=== PATIENT | female | born 1970 | race Caucasian/White ===

== ENCOUNTER → 2017-12-02 | Outpatient (CLI) | payer MEDICAID, MEDICARE, OTHER ==
--- NOTE | 2017-12-02 14:27 | RAD ---
Neck soft tissue ultrasound History: Dysphagia. Findings: Right thyroid lobe measures 4.9 x 1.8 x 2.1 cm. Left thyroid lobe measures 4.2 x 1.6 x 2.1 cm. Isthmus thickness is 0.3 cm. 2 mm right thyroid lobe simple cyst. No solid nodules. No microcalcifications. No parathyroid nodules documented. Impression: 2 mm simple cyst of the right thyroid lobe. Otherwise negative exam.
== END | disposition home or self-care (01) ==
LOC: US 13:55
PROVIDERS: ATTEND Family Medicine
DX: E04.1 Nontoxic single thyroid nodule (principal)
CPT/HCPCS: 76536

== ENCOUNTER → 2018-05-21 | Outpatient (CLI) | payer OTHER ==
[2018-05-21 14:16] LABS: FREE T4 0.86 ng/dL (0.76-1.46); THYROID STIM HORMONE (TSH) 1.355 uIU/mL (0.358-3.740)
[2018-05-21 16:09] LABS: T3 TOTAL 105 ng/dL (71-180)
== END | disposition home or self-care (01) ==
LOC: LAB 10:27
PROVIDERS: ATTEND Obstetrics & Gynecology
DX: L65.9 Nonscarring hair loss, unspecified (principal)
CPT/HCPCS: 36415; 84439; 84443; 84480

== ENCOUNTER → 2018-12-02 | Day surgery (SDC) | payer OTHER ==
[~2018-12-02] MED LIST: ALBUTEROL SULFATE 2.5 MG/3 ML NEBU. NEB PRN; ATROPINE 0.5 MG/5 ML DISP.SYRIN. IV PRN; CLOB10TA PO; IV RINGERS SOLUTION,LACTATED 1,000 ML IV SCH; LAMO100T PO; LEVE500T56 PO; LIDOCAINE 2% PF Vial for OR 5 ML VIAL. ONE; NALOXONE 0.4 MG/ML VIAL. IV PRN; ONDANSETRON PF 4 MG/2 ML VIAL. IV PRN; PHEN37.5 PO; PROPOFOL 40 ML IV ONE; ZOLP10TA PO; diphenhydrAMINE 50 MG/ML VIAL IV PRN
[2018-12-02 10:35] VITALS: BP 132/94
== END | disposition home or self-care (01) ==
LOC: SURG 08:02
PROVIDERS: ATTEND Internal Medicine Gastroenterology
DX: K92.1 Melena (principal); Z88.5 Allergy status to narcotic agent; Z88.6 Allergy status to analgesic agent; Z79.899 Other long term (current) drug therapy; Z98.890 Other specified postprocedural states; Z95.0 Presence of cardiac pacemaker
CPT/HCPCS: 45378; J2704; J2001

== ENCOUNTER 2019-04-03 10:42 | Emergency (ER) | payer OTHER ==
[~2019-04-03] VITALS: Ht 157.5 cm; Wt 74.4 kg
[~2019-04-03 10:42] MED LIST changes: -ALBUTEROL SULFATE 2.5 MG/3 ML NEBU. NEB PRN; -ATROPINE 0.5 MG/5 ML DISP.SYRIN. IV PRN; -IV RINGERS SOLUTION,LACTATED 1,000 ML IV SCH; -LIDOCAINE 2% PF Vial for OR 5 ML VIAL. ONE; -NALOXONE 0.4 MG/ML VIAL. IV PRN; -ONDANSETRON PF 4 MG/2 ML VIAL. IV PRN; -PROPOFOL 40 ML IV ONE; -diphenhydrAMINE 50 MG/ML VIAL IV PRN
--- NOTE | 2019-04-03 11:38 | RAD ---
CHEST PA LATERAL History: Chest pain and dizziness Comparison: 08/03/2019 two-view chest x-ray exam. Findings: The cardiomediastinal silhouette is normal. Pulmonary vasculature is normal. The lungs are clear. No pleural effusion or pneumothorax is seen. There is no acute bone abnormality. IMPRESSION: No acute cardiopulmonary process. Electronically signed by: Nick Erickson MD (04/03/2019 11:35 AM) [id number]
[2019-04-03 11:42] LABS: BASO # 0.1 x10^3/uL (0.0-0.2); BASO % 1 % (0-3); EOS % 0 % (0-3); HEMATOCRIT 47.4 % (36.0-47.0); HEMOGLOBIN 15.5 g/dL (12.0-15.5); LYMPH # 1.2 x10^3/uL (1.0-4.8); LYMPH % 15 % (24-48); MEAN CORPUSCULAR HEMOGLOBIN 29 pg (25-35); MEAN CORPUSCULAR HGB CONC 33 g/dL (31-37); MEAN CORPUSCULAR VOLUME 89 fL (79-100); MONO # 0.5 x10^3/uL (0.0-1.1); MONO % 7 % (0-9); NEUT # 6.2 x10^3uL (1.8-7.7); NEUT % 78 % (31-73); PLATELET COUNT 305 x10^3/uL (140-400); RED BLOOD COUNT 5.34 x10^6/uL (3.50-5.40); RED CELL DISTRIBUTION WIDTH 13.1 % (11.5-14.5)
[2019-04-03 11:47] LABS: ALBUMIN 4.3 g/dL (3.4-5.0); ALBUMIN/GLOBULIN RATIO 1.1 (1.0-1.7); CALCIUM 9.8 mg/dL (8.5-10.1); CREATININE 1.1 mg/dL (0.6-1.0); GFR 53.5; POTASSIUM 3.3 mmol/L (3.5-5.1); TOTAL BILIRUBIN 0.3 mg/dL (0.2-1.0); TOTAL PROTEIN 8.2 g/dL (6.4-8.2)
[2019-04-03] MEDS ORDERED: ASPIRIN 81 MG TAB.CHEW PO ONE (12:00)
--- NOTE | 2019-04-03 12:23 | PHYS DOC ---
Past History Past Medical History: Seizure Past Surgical History: Other Alcohol Use: None Drug Use: None Adult General Chief Complaint Chief Complaint: CHEST PAIN HPI HPI 48-year-old female presents with her mother with chest pain and rapid heartbeat. The patient tells me this started around 7 AM, 5 hours prior to arrival. She is very anxious about it. She states that it is today and intermittent throbbing sensation. It is moderate in intensity. She was not doing anything specific last started. Nothing seems to make it better or worse. She is complaining of some lightheadedness, but no shortness of breath. Patient's mother states that she has been to 2 other hospitals in the last several days for similar complaints. There is been no official diagnosis. She denies fever or chills. Review of Systems Review of Systems Constitutional: Denies fever or chills [] Eyes: Denies change in visual acuity, redness, or eye pain [] HENT: Denies nasal congestion or sore throat [] Respiratory: Denies cough or shortness of breath [] Cardiovascular: No additional information not addressed in HPI [] GI: Denies abdominal pain, nausea, vomiting, bloody stools or diarrhea [] : Denies dysuria or hematuria [] Musculoskeletal: Denies back pain or joint pain [] Integument: Denies rash or skin lesions [] Neurologic: Denies headache, focal weakness or sensory changes [] Endocrine: Denies polyuria or polydipsia [] All other systems were reviewed and found to be within normal limits, except as documented in this note. Current Medications Current Medications Current Medications Medications (Trade) Dose Ordered Sig/[facility] Start Time Stop Time Status Last Admin Dose Admin Aspirin (Children'S Aspirin) 324 mg 1X ONCE 04/03/19 12:00 04/03/19 12:01 DC 04/03/19 11:47 324 MG Allergies Allergies Allergies Coded Allergies Type Severity Reaction Last Updated Verified fentanyl Allergy Unknown 06/09/18 Yes morphine Allergy Unknown 06/09/18 Yes Physical Exam Physical Exam Constitutional: Well developed, well nourished, mild acute distress, non-toxic appearance. [] HENT: Normocephalic, atraumatic, bilateral external ears normal, oropharynx moist, no oral exudates, nose normal. [] Eyes: PERRLA, EOMI, conjunctiva normal, no discharge. [] Neck: Normal range of motion, no tenderness, supple, no stridor. [] Cardiovascular:Heart rate regular rhythm, no murmur [] Lungs & Thorax: Bilateral breath sounds clear to auscultation. Rapid breathing. [] Abdomen: Bowel sounds normal, soft, no tenderness, no masses, no pulsatile masses. [] Skin: Warm, dry, no erythema, no rash. [] Back: No tenderness, no CVA tenderness. [] Extremities: No tenderness, no cyanosis, no clubbing, ROM intact, no edema. [] Neurologic: Alert and oriented X 3, normal motor function, normal sensory function, no focal deficits noted. [] Psychologic: Affect normal, judgement normal, mood very anxious. [] Current Patient Data Vital Signs Vital Signs Date Time Temp Pulse Resp B/P (MAP) Pulse Ox O2 Delivery O2 Flow Rate FiO2 04/03/19 10:45 98.9 99 26 99 Room Air Lab Results Laboratory Tests Test 04/03/19 11:17 White Blood Count 8.0 x10^3/uL (4.0-11.0) Red Blood Count 5.34 x10^6/uL (3.50-5.40) Hemoglobin 15.5 g/dL (12.0-15.5) Hematocrit 47.4 % (36.0-47.0) H Mean Corpuscular Volume 89 fL (79-100) Mean Corpuscular Hemoglobin 29 pg (25-35) Mean Corpuscular Hemoglobin Concent 33 g/dL (31-37) Red Cell Distribution Width 13.1 % (11.5-14.5) Platelet Count 305 x10^3/uL (140-400) Neutrophils (%) (Auto) 78 % (31-73) H Lymphocytes (%) (Auto) 15 % (24-48) L Monocytes (%) (Auto) 7 % (0-9) Eosinophils (%) (Auto) 0 % (0-3) Basophils (%) (Auto) 1 % (0-3) Neutrophils # (Auto) 6.2 x10^3uL (1.8-7.7) Lymphocytes # (Auto) 1.2 x10^3/uL (1.0-4.8) Monocytes # (Auto) 0.5 x10^3/uL (0.0-1.1) Eosinophils # (Auto) 0.0 x10^3/uL (0.0-0.7) Basophils # (Auto) 0.1 x10^3/uL (0.0-0.2) Sodium Level 139 mmol/L (136-145) Potassium Level 3.3 mmol/L (3.5-5.1) L Chloride Level 102 mmol/L (98-107) Carbon Dioxide Level 27 mmol/L (21-32) Anion Gap 10 (6-14) Blood Urea Nitrogen 12 mg/dL (7-20) Creatinine 1.1 mg/dL (0.6-1.0) H Estimated GFR (Cockcroft-Gault) 53.5 BUN/Creatinine Ratio 11 (6-20) Glucose Level 119 mg/dL (70-99) H Calcium Level 9.8 mg/dL (8.5-10.1) Total Bilirubin 0.3 mg/dL (0.2-1.0) Aspartate Amino Transferase (AST) 18 U/L (15-37) Alanine Aminotransferase (ALT) 21 U/L (14-59) Alkaline Phosphatase 86 U/L (46-116) Troponin I Quantitative < 0.017 ng/mL (0-0.055) Total Protein 8.2 g/dL (6.4-8.2) Albumin 4.3 g/dL (3.4-5.0) Albumin/Globulin Ratio 1.1 (1.0-1.7) EKG EKG Sinus tachycardia, rate 110, normal axis, no ST elevations or depressions.[] Radiology/Procedures Radiology/Procedures [] Impressions: CHEST PA LATERAL History: Chest pain and dizziness Comparison: 08/03/2019 two-view chest x-ray exam. Findings: The cardiomediastinal silhouette is normal. Pulmonary vasculature is normal. The lungs are clear. No pleural effusion or pneumothorax is seen. There is no acute bone abnormality. IMPRESSION: No acute cardiopulmonary process. Electronically signed by: Kellie Lemon MD (04/03/2019 11:35 AM) [id number] DICTATED AND SIGNED BY: KELLIE LEMON MD DATE: 04/03/19 1135 CC: CHRISTIAN FELDMAN DO; YOLANDA CHAPA MD ~ Course & Med Decision Making Course & Med Decision Making Pertinent Labs and Imaging studies reviewed. (See chart for details) Patient appears extremely anxious. Her labs are unremarkable. Her troponin is negative. Her EKG is unremarkable except for being tachycardic at 110. Into discussed the patient's results, she was peeling off her heart monitors getting ready to leave. I advised her not to leave because I was still trying to ascertain the cause of her pain. We started to give her 1 L normal saline and I offered to give her some Ativan to calm her nerves. She would not allow my nurse to give her Ativan. Given her pain even though she has a negative troponin, we were going to try nitroglycerin sublingual, but the patient refuses this as well. She then left AMA before we can do any further workup or give her any medications. Incidentally, after she left, her d-dimer came back as normal. Chest x-ray is unremarkable. [] Dragon Disclaimer Dragon Disclaimer This electronic medical record was generated, in whole or in part, using a voice recognition dictation system. Departure Departure: Impression: Primary Impression: Chest pain Additional Impression: Anxiety Disposition: 07 AGAINST MEDICAL ADVICE Condition: GUARDED Referrals: YOLANDA CHAPA MD (PCP) Problem Qualifiers CHRISTIAN FELDMAN DO Apr 03, 2019 12:23
--- NOTE | 2019-04-03 12:43 | EKG ---
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
[2019-04-03 12:45] VITALS: BP 140/94
[2019-04-03] MEDS ORDERED: IV NORMAL SALINE 1,000ML 1,000 ML IV ONE (13:00)
== END 2019-04-03 13:22 | disposition left against medical advice (07) ==
LOC: ER 10:42
DX: R07.89 Other chest pain (principal); F41.9 Anxiety disorder, unspecified; R42 Dizziness and giddiness; Z88.8 Allergy status to other drugs, medicaments and biological substances; Z88.5 Allergy status to narcotic agent
CPT/HCPCS: 36415; 71046; 80053; 84484; 85025; 85379; 93005; 99285

== ENCOUNTER → 2019-05-28 | Outpatient (CLI) | payer OTHER ==
[~2019-05-28] MED LIST changes: +HYOS0.1264 PO; +LANS15TA6 PO; +METO10TA81 PO; +OXAP600T2 PO
[2019-05-29 02:09] LABS: ESTRADIOL LEVEL 83.5 pg/mL (.); PROGESTERONE 4.5 ng/mL (.); TESTOSTERONE TOTAL 25 ng/dL (8-48)
[2019-05-31 15:12] LABS: DHEA 384 ng/dL (31-701)
== END | disposition home or self-care (01) ==
LOC: RAD 13:27
PROVIDERS: ATTEND General Practice
DX: E34.9 Endocrine disorder, unspecified (principal)
CPT/HCPCS: 36415; 82626; 82670; 82679; 84144; 84403

== ENCOUNTER 2019-05-30 08:52 | Emergency (ER) | payer OTHER ==
[~2019-05-30] VITALS: Ht 157.5 cm; Wt 72.5 kg
[2019-05-30 08:52] VITALS: BP 147/99
[~2019-05-30 08:52] MED LIST changes: -HYOS0.1264 PO; -LANS15TA6 PO; -METO10TA81 PO; -OXAP600T2 PO
[2019-05-30] MEDS ORDERED: IV NORMAL SALINE 1,000ML 1,000 ML IV SCH (09:17)
[2019-05-30] MEDS ORDERED: IOHEXOL 240 MG/ML 50ML VIAL. ONE (09:27)
--- NOTE | 2019-05-30 09:32 | PHYS DOC ---
Past History Past Medical History: Seizure Past Surgical History: Other Smoking: Non-smoker Alcohol Use: None Drug Use: None Adult General Chief Complaint Chief Complaint: NAUSEA/VOMITING/[facility] Patient is a 48-year-old female presents with mid abdominal pain and heartburn radiating up into her chest. This started 4 days ago. No worsening with exertion. No change with food. The nausea has been constant. She was seen at her primary care physician's office this morning and given a shot for nausea. She still reports nausea. Denies any diarrhea. Denies any improvement with Pepto- Bismol. Denies any black tarry stools. No recent travel. She has had subjective fever and chills but had a normal temperature when she checked it yesterday. Symptoms are moderate in intensity. Nothing seems to make them better or worse. Review of Systems Review of Systems Constitutional: Denies fever or chills [] Eyes: Denies change in visual acuity, redness, or eye pain [] HENT: Denies nasal congestion or sore throat [] Respiratory: Denies cough or shortness of breath [] Cardiovascular: No additional information not addressed in HPI, no worsening of her heartburn with exertion nor with supine position [] GI: See history of present illness[] : Denies dysuria or hematuria [] Musculoskeletal: Denies back pain or joint pain [] Integument: Denies rash or skin lesions [] Neurologic: Denies headache, focal weakness or sensory changes [] Endocrine: Denies polyuria or polydipsia [] All other systems were reviewed and found to be within normal limits, except as documented in this note. Allergies Allergies Allergies Coded Allergies Type Severity Reaction Last Updated Verified fentanyl Allergy Unknown 06/09/18 Yes morphine Allergy Unknown 06/09/18 Yes Physical Exam Physical Exam Constitutional: Well developed, well nourished, no acute distress, non-toxic appearance. [] HENT: Normocephalic, atraumatic, bilateral external ears normal, oropharynx moist, no oral exudates, nose normal. [] Eyes: PERRLA, EOMI, conjunctiva normal, no discharge. [] Neck: Normal range of motion, no tenderness, supple, no stridor. [] Cardiovascular:Heart rate regular rhythm, no murmur [] Lungs & Thorax: Bilateral breath sounds clear to auscultation [] Abdomen: Bowel sounds normal, soft, periumbilical tenderness to palpation, no rebound, no guarding, no rigidity, able to sit up and lie back without any difficulty, no masses, no pulsatile masses. [] Skin: Warm, dry, no erythema, no rash. [] Back: No tenderness, no CVA tenderness. [] Extremities: No tenderness, no cyanosis, no clubbing, ROM intact, no edema. [] Neurologic: Alert and oriented X 3, normal motor function, normal sensory function, no focal deficits noted. [] Psychologic: Affect normal, judgement normal, mood normal. [] EKG EKG EKG shows sinus rhythm at 84 bpm, normal axis, QTC of 431 ms, no ST elevations. Interpreted by me at 1119.[] Radiology/Procedures Radiology/Procedures PROCEDURE: CT ABD PELV W/ORAL&IV CONTRAST PQRS Compliance statement: One or more of the following individualized dose reduction techniques were utilized for this examination: 1. Automated exposure control. 2. Adjustment of the mA and/or kV according to patient size. 3. Use of iterative reconstruction technique. Indication:CT abdomen/pelvis for stomach pain,nause X four days, indigestion, unable to establish IV, oral contrast omnipaque 240/30ml given, no previous ct of abd/pelv in system TECHNIQUE: CT abdomen and pelvis without IV contrast with multiplanar reformats. COMPARISON: None FINDINGS: Limited evaluation of solid abdominal and pelvic organs due to lack of IV contrast. Heart is normal in size. No pericardial or pleural effusion. Clear lung bases. Noncontrast appearance of the liver, spleen, gallbladder, pancreas, adrenals within normal limits. No nephrolithiasis or hydronephrosis. No free pelvic fluid or ascites. No enlarged retroperitoneal or pelvic lymphadenopathy. No bowel obstruction. Normal appendix. No pneumoperitoneum. Anteverted uterus. Urinary bladder demonstrates no radiopaque stone. No no suspicious bony lesion. IMPRESSION: Limited evaluation of solid abdominal and pelvic organs due to lack of IV contrast. 1. No nephrolithiasis or hydronephrosis. 2. No bowel obstruction. Normal appendix.[] Course & Med Decision Making Course & Med Decision Making Pertinent Labs and Imaging studies reviewed. (See chart for details) ED course: Patient arrived, was placed in bed, and tolerated exam well. She was able to tolerate oral contrast. Multiple attempts were made at IV access without success. She was transported to and from radiology with any complications. After the return of laboratory and imaging findings, these were discussed with the patient who voiced understanding. All questions were answered. She was discharged in improved condition. Medical decision making: There is no evidence of an obstruction, perforation, pancreatitis, acute coronary syndrome, nor urinary tract infection. We will treat the pain with oral outpatient medicines.[] Dragon Disclaimer Dragon Disclaimer This electronic medical record was generated, in whole or in part, using a voice recognition dictation system. Departure Departure: Impression: Primary Impression: Abdominal pain Disposition: HOME, SELF-CARE Condition: IMPROVED Referrals: YOLANDA CHAPA MD (PCP) Follow-up in 2 days Patient Instructions: Abdominal Pain Additional Instructions: Drink plenty of fluids, frequent small sips. No fatty foods, no milk, and no pe pper for the next 48 hours. For the next 48 hours eat a diet rich in carbohydrates with foods such as bananas, rice, applesauce, and toast. Follow-up with your regular doctor in 2 days. Return to the ER if worsening discomfort, unable to tolerate liquids, or any other concerns. Scripts Oxaprozin (OXAPROZIN) 600 Mg Tablet 600 MG PO BID for pain, #20 TAB Prov: JERICA CASTRO DO 05/30/19 Lansoprazole (PREVACID) 15 Mg Tab.rap.dr 1 TAB PO DAILY for reflux symptoms, #30 TAB Prov: JERICA CASTRO DO 05/30/19 Metoclopramide Hcl (REGLAN) 10 Mg Tablet 10 MG PO QID for nausea and vomiting, #30 TAB Prov: JERICA CASTRO DO 05/30/19 Hyoscyamine Sulfate (LEVSIN) 0.125 Mg Tablet 0.125 MG PO QID for abdominal pain/cramping, #30 TAB Prov: JERICA CASTRO DO 05/30/19 Problem Qualifiers Primary Impression: Abdominal pain Abdominal location: periumbilical Qualified Codes: R10.33 - Periumbilical pain JERICA CASTRO DO May 30, 2019 09:32
[2019-05-30 09:57] LABS: BASO # 0.1 x10^3/uL (0.0-0.2); BASO % 1 % (0-3); EOS % 0 % (0-3); HEMATOCRIT 42.1 % (36.0-47.0); HEMOGLOBIN 14.1 g/dL (12.0-15.5); LYMPH # 1.1 x10^3/uL (1.0-4.8); LYMPH % 12 % (24-48); MEAN CORPUSCULAR HEMOGLOBIN 29 pg (25-35); MEAN CORPUSCULAR HGB CONC 34 g/dL (31-37); MEAN CORPUSCULAR VOLUME 88 fL (79-100); MONO # 0.4 x10^3/uL (0.0-1.1); MONO % 4 % (0-9); NEUT # 7.1 x10^3uL (1.8-7.7); NEUT % 82 % (31-73); PLATELET COUNT 295 x10^3/uL (140-400); RED CELL DISTRIBUTION WIDTH 13.1 % (11.5-14.5); WHITE BLOOD COUNT 8.6 x10^3/uL (4.0-11.0)
[2019-05-30] MEDS ORDERED: LIDO:MAALOX 1:1 20 ML SINGLE DOSE. PO ONE (10:00)
[2019-05-30] MEDS ORDERED: IOHEXOL 300 MG/ML 75 ML VIAL. IV ONE (10:00)
[2019-05-30] MEDS ORDERED: ONDANSETRON PF 4 MG/2 ML VIAL. IV ONE (10:00)
[2019-05-30] MEDS ORDERED: HYOSCYAMINE 0.125 MG TAB.RAPDIS PO ONE (10:00)
[2019-05-30] MEDS ORDERED: IOHEXOL 240 MG/ML 50ML VIAL. PO ONE (10:00)
[2019-05-30 10:05] LABS: ALBUMIN 3.9 g/dL (3.4-5.0); ALBUMIN/GLOBULIN RATIO 1.1 (1.0-1.7); CALCIUM 9.3 mg/dL (8.5-10.1); CREATININE 0.8 mg/dL (0.6-1.0); GFR 77.2; POTASSIUM 3.8 mmol/L (3.5-5.1); TOTAL BILIRUBIN 0.4 mg/dL (0.2-1.0); TOTAL PROTEIN 7.6 g/dL (6.4-8.2)
--- NOTE | 2019-05-30 11:30 | RAD ---
PQRS Compliance statement: One or more of the following individualized dose reduction techniques were utilized for this examination: 1. Automated exposure control. 2. Adjustment of the mA and/or kV according to patient size. 3. Use of iterative reconstruction technique. Indication:CT abdomen/pelvis for stomach pain,nause X four days, indigestion, unable to establish IV, oral contrast omnipaque 240/30ml given, no previous ct of abd/pelv in system TECHNIQUE: CT abdomen and pelvis without IV contrast with multiplanar reformats. COMPARISON: None FINDINGS: Limited evaluation of solid abdominal and pelvic organs due to lack of IV contrast. Heart is normal in size. No pericardial or pleural effusion. Clear lung bases. Noncontrast appearance of the liver, spleen, gallbladder, pancreas, adrenals within normal limits. No nephrolithiasis or hydronephrosis. No free pelvic fluid or ascites. No enlarged retroperitoneal or pelvic lymphadenopathy. No bowel obstruction. Normal appendix. No pneumoperitoneum. Anteverted uterus. Urinary bladder demonstrates no radiopaque stone. No no suspicious bony lesion. IMPRESSION: Limited evaluation of solid abdominal and pelvic organs due to lack of IV contrast. 1. No nephrolithiasis or hydronephrosis. 2. No bowel obstruction. Normal appendix. Electronically signed by: Kostas Araiza DO (05/30/2019 11:27 AM) [facility]
[2019-05-30 12:01] LABS: BACTERIA,URINE MOD /HPF (0-FEW); BILIRUBIN,URINE NEG (NEG); CLARITY,URINE CLEAR; COLOR,URINE YELLOW; NITRITE,URINE NEG (NEG); UROBILINOGEN,URINE 0.2 mg/dL (0.2 mg/dL)
[2019-05-30] MEDS ORDERED: LANS15TA6 PO (12:01)
[2019-05-30] MEDS ORDERED: METO10TA81 PO (12:01)
[2019-05-30] MEDS ORDERED: HYOS0.1264 PO (12:01)
[2019-05-30] MEDS ORDERED: OXAP600T2 PO (12:01)
[2019-05-30 12:02] LABS: SQUAMOUS EPITHELIAL CELL,UR MOD /LPF
[2019-05-30 12:03] LABS: GLUCOSE,URINE NEG (NEG)
--- NOTE | 2019-05-30 16:02 | EKG ---
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
== END 2019-05-30 12:05 | disposition home or self-care (01) ==
LOC: ER 08:52
DX: R10.33 Periumbilical pain (principal); R12 Heartburn; R11.0 Nausea; Z88.5 Allergy status to narcotic agent; Z88.8 Allergy status to other drugs, medicaments and biological substances
CPT/HCPCS: 36415; 74176; 80053; 81001; 83690; 84484; 85025; 87086; 93005; 99285; Q9966; 74177